=== PATIENT | male | born 1950 | race Caucasian/White ===

== ENCOUNTER 2017-09-16 10:29 | Outpatient (CLI) | payer MEDICARE, OTHER ==
[2017-09-16 17:58] LABS: BASOPHILS # (AUTO) 0.1 10^3/uL (0.0-0.1); BASOPHILS % (AUTO) 0.8 %; EOSINOPHILS # (AUTO) 0.1 10^3/uL (0.0-0.7); EOSINOPHILS % (AUTO) 1.6 %; HGB - HEMOGLOBIN 15.4 g/dL (14.0-18.0); MEAN CORPUSCULAR HEMOGLOBIN 32.4 pg (27.0-31.0); MEAN CORPUSCULAR HGB CONC 33.6 g/dL (32.0-36.0); MEAN CORPUSCULAR VOLUME 96.3 fL (80.0-94.0); MEAN PLATELET VOLUME 8.6 fL (7.4-11.4); MONOCYTES # (AUTO) 0.9 10^3/uL (0.0-1.0); MONOCYTES % (AUTO) 13.5 %; NEUTROPHILS # (AUTO) 2.8 10^3/uL (1.5-6.6); NEUTROPHILS % (AUTO) 41.1 %; PLT - PLATELET COUNT 309 10^3/uL (130-450); RED BLOOD COUNT 4.75 10^6/uL (4.70-6.10); RED CELL DISTRIBUTION WIDTH 12.5 % (12.0-15.0); WHITE BLOOD COUNT 6.9 x10^3/uL (4.8-10.8)
[2017-09-16 18:08] LABS: ALBUMIN 4.4 g/dL (3.2-5.5); ALBUMIN/GLOBULIN RATIO 1.3 (1.0-2.2); ALKALINE PHOSPHATASE 55 IU/L (42-121); ALT ALANINE AMINOTRANSFERASE 28 IU/L (10-60); AST ASPARTATE AMINOTRANSFERASE 21 IU/L (10-42); BUN - BLOOD UREA NITROGEN 16 mg/dL (6-20); CALCIUM 9.1 mg/dL (8.5-10.3); CARBON DIOXIDE - CO2 22 mmol/L (21-32); CHLORIDE 99 mmol/L (101-111); CHOL/HDL RATIO 4.1 (<5.0); CHOLESTEROL 244 mg/dL; CREATININE 0.9 mg/dL (0.6-1.2); GFR - MDRD 84 (>89); GLUCOSE 106 mg/dL (70-100); HDL CHOLESTEROL 59 mg/dL; LDL CHOLESTEROL,CALCULATED 145 mg/dL; LDL/HDL RATIO 2.5 (<3.6); SODIUM 132 mmol/L (135-145); TOTAL PROTEIN 7.8 g/dL (6.7-8.2); VLDL CHOLESTEROL 40 mg/dL
[2017-09-17 13:46] LABS: HEPATITIS A AB TOTAL(IMMUNITY) NON-REACTIVE (NON-REACTIVE); HEPATITIS B CORE AB TOTAL NON-REACTIVE (NON-REACTIVE)
[2017-09-17 15:27] LABS: HEPATITIS B SURFACE ANTIGEN NON-REACTIVE (NON-REACTIVE); HEPATITIS C ANTIBODY NON-REACTIVE (NON-REACTIVE)
== END 2017-09-16 10:30 | disposition home or self-care (01) ==
LOC: LAB.F 10:29
PROVIDERS: ATTEND Specialist
DX: I10 Essential (primary) hypertension (principal); Z12.5 Encounter for screening for malignant neoplasm of prostate; Z13.9 Encounter for screening, unspecified; D64.9 Anemia, unspecified; K76.89 Other specified diseases of liver
CPT/HCPCS: 36415; 80053; 80061; 85025; 86704; 86708; 86803; 87340; G0103; 84153

== ENCOUNTER 2019-09-21 15:00 | Outpatient (CLI) | payer MEDICARE, OTHER | END 2019-09-21 15:01 | disposition home or self-care (01) | LOC: LAB.S 15:00 | PROVIDERS: ATTEND Urology | DX: R97.20 Elevated prostate specific antigen [PSA] (principal) | CPT/HCPCS: 36415; 84153 ==

== ENCOUNTER 2020-07-30 16:54 | Outpatient (CLI) | payer MEDICARE, OTHER | END 2020-07-30 16:55 | disposition home or self-care (01) | LOC: COV 16:54 | PROVIDERS: ATTEND Family Medicine | DX: Z20.828 Contact with and (suspected) exposure to other viral communicable diseases (principal) ==

== ENCOUNTER 2020-10-09 15:43 | Outpatient (CLI) | payer MEDICARE, OTHER | END 2020-10-09 15:44 | disposition home or self-care (01) | LOC: LAB.S 15:43 | PROVIDERS: ATTEND Urology | DX: R97.20 Elevated prostate specific antigen [PSA] (principal) | CPT/HCPCS: 36415; 84153 ==

== ENCOUNTER 2021-05-14 20:59 | Emergency (ER) | payer MEDICARE, OTHER ==
[2021-05-14] MEDS ORDERED: IBUPROFEN 800 MG TABLET PO STA (21:33)
[2021-05-14] MEDS ORDERED: ACETAMINOPHEN 325 MG TABLET PO STA (21:33)
--- NOTE | 2021-05-14 21:38 | ED Physician Documentation ---
History of Present Illness - Stated complaint Stated Complaint: FEVER, FATIGUE, BODY ACHE - Chief complaint Chief Complaint: Fever - History obtained from History obtained from: Patient - Additonal information Additional information: Patient comes emergency department chief complaint of fever, fatigue, and a sense of chest congestion. He states that he had Covid about 5 weeks ago and this feels somewhat similar. States he had the Pfizer vaccine second dose back in December, and his had [employer], but became sick with Covid first. Patient became symptomatic 5 days after his . He states that he is a an avid swimmer and was able to swim a mile and a half yesterday. However, today he woke up feeling as though he was "hung over". He denies cough, but states he just has a sense of congestion in his upper airways that feels like he will eventually develop a cough. He denies any vomiting but has been mildly nauseated. He has also had some aches and chills. He denies any other complaints at this time. No other focal symptoms, such as dysuria or sore throat. He feels slightly dyspneic. Review of Systems Ten Systems: 10 systems reviewed and negative Constitutional: reports: Fever, Chills, Myalgias, Fatigue Eyes: reports: Reviewed and negative Ears: reports: Reviewed and negative Nose: reports: Reviewed and negative Throat: reports: Reviewed and negative Cardiac: reports: Reviewed and negative Respiratory: reports: Dyspnea. denies: Cough GI: reports: Reviewed and negative : reports: Reviewed and negative Skin: reports: Reviewed and negative Musculoskeletal: reports: Reviewed and negative Neurologic: reports: Reviewed and negative Psychiatric: reports: Reviewed and negative Endocrine: reports: Reviewed and negative Immunocompromised: reports: Reviewed and negative PD PAST MEDICAL HISTORY - Allergies Allergies/Adverse Reactions: Allergies Allergy/AdvReac Type Severity Reaction Status Date / Time No Known Drug Allergies Allergy Verified 05/14/21 22:42 PD ED PE NORMAL - Vitals Vital signs reviewed: Yes - General General: Alert and oriented X 3, No acute distress, Well developed/nourished (Patient is very well-appearing.) - HEENT HEENT: Atraumatic, PERRL, EOMI, Moist mucous membranes - Neck Neck: Supple, no meningeal sign - Cardiac Cardiac: RRR, No murmur - Respiratory Respiratory: No respiratory distress, Clear bilaterally - Abdomen Abdomen: Soft, Non tender, Non distended - Derm Derm: Normal color, Warm and dry, No rash - Extremities Extremities: No deformity, No edema - Neuro Neuro: Alert and oriented X 3 - Psych Psych: Normal mood, Normal affect Results - Vitals Vitals: Vital Signs - 24 hr 05/14/21 05/14/21 21:05 23:38 Temperature 38.5 C H 37.3 C Heart Rate 108 H 98 Respiratory 16 24 Rate Blood Pressure 167/90 H 120/106 H O2 Saturation 97 94 Oxygen O2 Source Room air - Labs Labs: Laboratory Tests 05/14/21 05/14/21 21:42 22:16 WBC 10.8 RBC 4.15 L Hgb 14.0 Hct 39.3 L MCV 94.7 H MCH 33.7 H MCHC 35.6 RDW 11.7 L Plt Count 254 MPV 8.9 Neut # (Auto) 7.8 H Lymph # (Auto) 2.0 [place] # (Auto) 0.9 Eos # (Auto) 0.0 Baso # (Auto) 0.1 Absolute Nucleated RBC 0.00 Nucleated RBC % 0.0 Nasal Adenovirus (PCR) NOT DETECTED Nasal B. parapertussis DNA (PCR) NOT DETECTED Nasal Coronavir 229E PCR NOT DETECTED Nasal Coronavir HKU1 PCR NOT DETECTED Nasal Coronavir NL63 PCR NOT DETECTED Nasal Coronavir OC43 PCR NOT DETECTED Nasal Enterovir/Rhinovir PCR NOT DETECTED Nasal Influenza B PCR NOT DETECTED Nasal Influenza A PCR NOT DETECTED Nasal Parainfluen 1 PCR NOT DETECTED Nasal Parainfluen 2 PCR NOT DETECTED Nasal Parainfluen 3 PCR NOT DETECTED Nasal Parainfluen 4 PCR NOT DETECTED Nasal RSV (PCR) NOT DETECTED Nasal B.pertussis DNA PCR NOT DETECTED Nasal C.pneumoniae (PCR) NOT DETECTED [place] Human Metapneumo PCR NOT DETECTED Nasal M.pneumoniae (PCR) NOT DETECTED Nasal SARS-CoV-2 (PCR) NOT DETECTED - Rads (name of study) Chest x-ray Radiology: Final report received, EMP read indepedently, See rad report (neg) PD MEDICAL DECISION MAKING - ED course Complexity details: reviewed results, re-evaluated patient, considered differential, d/w patient ED course: The patient was extremely well-appearing in the emergency department, but given his age and fever, I felt that he should be worked up for potential causes of his symptoms. Respiratory PCR panel was sent, and patient was also evaluated with chest x-ray. CBC was also performed. The patient was given ibuprofen and Tylenol for his fever.The patient's work-up was negative. He was feeling better and felt he was stable for discharge home I did not find Evidence of a focus of infection and suspected viral illness. However, we discussed that the patient just feeling worse, he should return to the emergency department for further evaluation. Departure - Departure Disposition: Home, Self Care Clinical Impression: Fever Qualifiers: Fever type: unspecified Qualified Code(s): R50.9 - Fever, unspecified Condition: Stable Instructions: ED Fever Unconf Cause Comments: Your chest x-ray shows no pneumonia and is normal. Your white blood cell count is also normal, which is reassuring. Your viral panel did come back just now and is negative for everything including influenza and coronavirus. At this point in time, it is most likely that you have picked up one of the other viru ses in the environment, of which there are many which cause similar symptoms. Most likely, you will get feeling better over the next several days. However, if you feel that your significantly worsening, you should return to the emergency department for further evaluation. In the meantime, be sure to drink plenty of fluids and take ibuprofen and/or Tylenol every 4-6 hours as needed for fever. Specifically, you may take Tylenol 650 mg every 4 hours and ibuprofen 600 mg every 6 hours as needed. You may exercise as tolerated when you are feeling well enough. Discharge Date/Time: 05/14/21 23:35
[2021-05-14 21:44] LABS: BASOPHILS # (AUTO) 0.1 10^3/uL (0.0-0.1); BASOPHILS % (AUTO) 0.5 %; EOSINOPHILS % (AUTO) 0.4 %; HCT - HEMATOCRIT 39.3 % (42.0-52.0); LYMPHOCYTES % (AUTO) 18.2 %; MEAN CORPUSCULAR HEMOGLOBIN 33.7 pg (27.0-31.0); MEAN CORPUSCULAR HGB CONC 35.6 g/dL (32.0-36.0); MEAN CORPUSCULAR VOLUME 94.7 fL (80.0-94.0); MEAN PLATELET VOLUME 8.9 fL (7.4-11.4); MONOCYTES # (AUTO) 0.9 10^3/uL (0.0-1.0); MONOCYTES % (AUTO) 8.5 %; NEUTROPHILS # (AUTO) 7.8 10^3/uL (1.5-6.6); NEUTROPHILS % (AUTO) 72.1 %; PLT - PLATELET COUNT 254 10^3/uL (130-450); RED BLOOD COUNT 4.15 10^6/uL (4.70-6.10); RED CELL DISTRIBUTION WIDTH 11.7 % (12.0-15.0); WHITE BLOOD COUNT 10.8 x10^3/uL (4.8-10.8)
[2021-05-14 23:11] LABS: B. PARAPERTUSSIS- RESP PCR PAN NOT DETECTED; B. PERTUSSIS- RESP PCR PANEL NOT DETECTED; C. PNEUMONIAE- RESP PCR PANEL NOT DETECTED; CORONAVIRUS 229E-RESP PCR NOT DETECTED; CORONAVIRUS HKU1-RESP PCR NOT DETECTED; CORONAVIRUS NL63-RESP PCR NOT DETECTED; CORONAVIRUS OC43-RESP PCR NOT DETECTED; HUMAN METAPNEUMOVIRUS NOT DETECTED; INFLUENZA A- RESP PCR PANEL NOT DETECTED; INFLUENZA B - RESP PCR PANEL NOT DETECTED; M. PNEUMONIAE- RESP PCR PANEL NOT DETECTED; PARAINFLUENZA VIRUS 1 NOT DETECTED; PARAINFLUENZA VIRUS 2 NOT DETECTED; PARAINFLUENZA VIRUS 3 NOT DETECTED; PARAINFLUENZA VIRUS 4 NOT DETECTED; RHINOVIRUS/ENTEROVIRUS NOT DETECTED; RSV- RESP PCR PANEL NOT DETECTED; SARS-CoV-2 -RESP PCR PANEL NOT DETECTED
[2021-05-14 23:41] VITALS: BP 120/106
--- NOTE | 2021-05-15 08:07 | XRAY Report ---
PROCEDURE: Chest 1 View X-Ray INDICATIONS: chest pain TECHNIQUE: One view of the chest was acquired. COMPARISON: None FINDINGS: Surgical changes and devices: None. Lungs and pleura: No pleural effusions or pneumothorax. Lungs are clear. Mediastinum: Mediastinal contours appear normal. Heart size is normal. Bones and chest wall: No suspicious bony lesions. Overlying soft tissues appear unremarkable. IMPRESSION: No effusions or consolidations. It is noted the inferior most aspect of the right costophrenic angle is not included within the [id number]. Reviewed by: Suzan Gonzales MD on 05/15/2021 8:05 AM PDT Approved by: Suzan Gonzales MD on 05/15/2021 8:05 AM PDT Station ID: [id number]
== END 2021-05-14 23:35 | disposition home or self-care (01) ==
LOC: ED 20:59
DX: R50.9 Fever, unspecified (principal); Z86.16 Personal history of COVID-19
CPT/HCPCS: 36415; 71045; 85025; 87631; 99284; A9270; 0202U

== ENCOUNTER 2021-10-24 08:00 | Outpatient (CLI) | payer MEDICARE, OTHER ==
--- NOTE | 2021-10-24 11:51 | XRAY Report ---
PROCEDURE: Chest 2 View X-Ray INDICATIONS: RIGHT LOWER ZONE PNEUMONIA TECHNIQUE: 2 view(s) of the chest. COMPARISON: 05/14/2021 FINDINGS: Surgical changes and devices: None. Lungs and pleura: An incomplete inspiratory result is noted, with low lung volumes and crowding of t he vascular markings. No focal infiltrates are seen. No large pneumothorax or large pleural effusion can be seen. Mediastinum: Mediastinal contours are normal. Heart size is normal. Bones and chest wall: No suspicious bony abnormalities. Soft tissues appear unremarkable. IMPRESSION: No focal infiltrates are seen. If there is strong clinical concern for a developing or new pulmonary process, please consider a shor t-term follow-up 2 view chest series, performed in deep inspiration. Reviewed by: Yamil Man MD on 10/24/2021 10:50 AM [facility] Approved by: Yamil Man MD on 10/24/2021 10:50 AM [facility] Station ID: [id number]
== END 2021-10-24 23:59 | disposition home or self-care (01) ==
LOC: DI.S 08:00
PROVIDERS: ATTEND Emergency Medicine
DX: J18.1 Lobar pneumonia, unspecified organism (principal)

== ENCOUNTER 2021-12-17 16:07 | Outpatient (CLI) | payer MEDICARE, OTHER | END 2021-12-17 16:08 | disposition home or self-care (01) | LOC: LAB.S 16:07 | PROVIDERS: ATTEND Urology | DX: Z12.5 Encounter for screening for malignant neoplasm of prostate (principal) | CPT/HCPCS: 36415; G0103; 84153 ==

== ENCOUNTER 2022-11-24 13:29 | Outpatient (CLI) | payer MEDICARE, OTHER ==
[2022-11-24 20:32] LABS: ALBUMIN/GLOBULIN RATIO 1.2 (1.0-2.2); BILIRUBIN,TOTAL 0.9 mg/dL (0.2-1.0); CALCIUM 8.9 mg/dL (8.5-10.3); CREATININE 0.9 mg/dL (0.6-1.2); TOTAL PROTEIN 7.3 g/dL (6.7-8.2)
== END 2022-11-24 13:30 | disposition home or self-care (01) ==
LOC: LAB.S 13:29
PROVIDERS: ATTEND Internal Medicine Gastroenterology
DX: R10.10 Upper abdominal pain, unspecified (principal)
CPT/HCPCS: 36415; 80053

== ENCOUNTER 2023-05-13 14:20 | Outpatient (CLI) | payer MEDICARE, OTHER | END 2023-05-13 14:21 | disposition home or self-care (01) | LOC: LAB 14:20 | PROVIDERS: ATTEND Registered Nurse | DX: R61 Generalized hyperhidrosis (principal) | CPT/HCPCS: 36415; 86141; 93005 ==

== ENCOUNTER 2023-08-03 09:01 | Outpatient (CLI) | payer MEDICARE, OTHER | END 2023-08-03 09:02 | disposition home or self-care (01) | LOC: DI 09:01 | PROVIDERS: ATTEND Registered Nurse | DX: R61 Generalized hyperhidrosis (principal); I51.7 Cardiomegaly; I35.0 Nonrheumatic aortic (valve) stenosis; I35.1 Nonrheumatic aortic (valve) insufficiency; I77.810 Thoracic aortic ectasia | CPT/HCPCS: 93306 ==

== ENCOUNTER 2023-09-15 15:07 | Outpatient (CLI) | payer MEDICARE, OTHER ==
[2023-09-15 15:42] LABS: CALCIUM 9.6 mg/dL (8.5-10.3); CREATININE 1.2 mg/dL (0.6-1.3); POTASSIUM 4.3 mmol/L (3.5-4.5)
== END 2023-09-15 15:08 | disposition home or self-care (01) ==
LOC: LAB 15:07
PROVIDERS: ATTEND Internal Medicine Cardiovascular Disease
DX: I10 Essential (primary) hypertension (principal)
CPT/HCPCS: 36415; 80048

== ENCOUNTER 2024-01-10 13:03 | Outpatient (CLI) | payer MEDICARE, OTHER | END 2024-01-10 13:04 | disposition home or self-care (01) | LOC: LAB 13:03 | PROVIDERS: ATTEND Urology | DX: Z12.5 Encounter for screening for malignant neoplasm of prostate (principal) | CPT/HCPCS: 36415; G0103; 84153 ==

== ENCOUNTER 2024-01-26 10:37 | Outpatient (CLI) | payer MEDICARE, OTHER ==
[2024-01-26 11:04] LABS: CALCIUM 9.7 mg/dL (8.5-10.3); POTASSIUM 3.7 mmol/L (3.5-4.5)
== END 2024-01-26 10:38 | disposition home or self-care (01) ==
LOC: LAB 10:37
PROVIDERS: ATTEND Internal Medicine Cardiovascular Disease
DX: I10 Essential (primary) hypertension (principal)
CPT/HCPCS: 36415; 80048

== ENCOUNTER 2024-03-23 14:15 | Outpatient (CLI) | payer MEDICARE, OTHER ==
[2024-03-23 15:25] LABS: CREATININE 0.9 mg/dL (0.6-1.3); POTASSIUM 3.8 mmol/L (3.5-4.5)
== END 2024-03-23 14:16 | disposition home or self-care (01) ==
LOC: LAB 14:15
PROVIDERS: ATTEND Internal Medicine Cardiovascular Disease
DX: I10 Essential (primary) hypertension (principal)
CPT/HCPCS: 36415; 80048

== ENCOUNTER 2024-05-22 09:34 | Emergency (ER) | payer MEDICARE, OTHER ==
[2024-05-22 09:49] VITALS: BP 139/90
--- NOTE | 2024-05-22 10:27 | XRAY Report ---
PROCEDURE: Chest 1V INDICATIONS: chest pain TECHNIQUE: One view of the chest was acquired. COMPARISON: 10/24/2021. FINDINGS: Surgical changes and devices: None. Lungs and pleura: No pleural effusions or pneumothorax. Lungs are clear. Mediastinum: Mediastinal contours appear normal. Heart size is normal. Bones and chest wall: No suspicious bony lesions. Overlying soft tissues appear unremarkable. IMPRESSION: No acute cardiopulmonary process. Reviewed by: Gee De La Fuente MD on 05/22/2024 10:25 AM PDT Approved by: Gee De La Fuente MD on 05/22/2024 10:25 AM PDT Station ID: [id number]
[2024-05-22 10:42] VITALS: O2SAT 95
--- NOTE | 2024-05-22 10:54 | ED Physician Documentation ---
PD HPI URI - Stated complaint Stated Complaint: C+ - Chief complaint Chief Complaint: General - History obtained from History obtained from: Patient - History of Present Illness Timing - onset: How many days ago (4) Timing duration: Days (4) Timing details: Gradual onset, Still present Associated symptoms: Nasal congestion, Sore throat, Dry cough Contributing factors: Other (+ COVID) Improves by: Rest, Medication Worsened by: Activity Similar symptoms before: Diagnosis (COVID) Recently seen: Not recently seen - Additional information Additional information: Ben Rai is a 74-year-old male with a history of aortic regurgitation (under surveillance) who presents with a 4-day history of upper respiratory symptoms including a sore throat and dry cough. He has tested positive for COVID. He has had COVID previously and he has been immunized multiple times. He did not have complications with his prior COVID infection. He is not coughing up any phlegm. He is not febrile. He does not have any history of diabetes, obesity or heart disease. Review of Systems Constitutional: denies: Fever, Chills Ears: denies: Ear pain Nose: reports: Congestion. denies: Rhinorrhea / runny nose Throat: reports: Sore throat Cardiac: denies: Chest pain / pressure, Palpitations Respiratory: reports: Cough. denies: Dyspnea GI: denies: Vomiting, Diarrhea PD PAST MEDICAL HISTORY - Past Medical History Past Medical History: Yes Cardiovascular: Hypertension Respiratory: None Neuro: None Endocrine/Autoimmune: None GI: Colon polyps : None HEENT: None Psych: None Musculoskeletal: None Derm: None - Past Surgical History Past Surgical History: Yes Ortho: Knee replacement - Allergies Allergies/Adverse Reactions: Allergies Allergy/AdvReac Type Severity Reaction Status Date / Time No Known Drug Allergies Allergy Verified 05/22/24 09:46 - Social History Does the pt smoke?: No Smoking Status: Never smoker Does the pt drink ETOH?: No Does the pt have substance abuse?: No - Immunizations Immunizations are current?: Yes Immunizations: TDAP >10years/unknown - POLST Patient has POLST: No PD ED PE NORMAL - Vitals Vital signs reviewed: Yes (hypertertensive ) - General General: Alert and oriented X 3, No acute distress, Well developed/nourished - HEENT HEENT: Atraumatic, PERRL, EOMI - Neck Neck: Supple, no meningeal sign, No bony TTP - Cardiac Cardiac: RRR, Other (2/6 holosystolic murmer at LSB) - Respiratory Respiratory: No respiratory distress - Abdomen Abdomen: Soft, Non tender - Derm Derm: Normal color, Warm and dry, No rash - Extremities Extremities: No deformity, No edema - Neuro Neuro: Alert and oriented X 3, 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, No motor deficit, No sensory deficit, Normal speech Eye Opening: Spontaneous Motor: Obeys Commands Verbal: Oriented GCS Score: 15 - Psych Psych: Normal mood, Normal affect Results - Vitals Vitals: Vital Signs - 24 hr 05/22/24 05/22/24 09:46 10:33 Temperature 37.1 C Heart Rate 73 59 L Respiratory 18 16 Rate Blood Pressure 139/90 H 139/90 H O2 Saturation 99 95 Oxygen O2 Source Room air - Rads (name of study) chest Relevant Findings:: Prelim report reviewed (Impression: no acute cardiopulmonary process.), EMP independent interpretation of test PD Medical Decision Making - ED course Complexity details: considered differential, d/w patient ED course: Ben Rai is a 74-year-old male who presents to the emergency department with a positive COVID test and he is not feeling ill. He had symptoms start about 4 days ago his sore throat is improving and this is the major symptom that he has had. A chest x-ray is obtained without evidence of infiltrate. The patient was concerned about taking paxlovid and this appears unnecessary. Departure - Departure Disposition: 01 Home, Self Care Clinical Impression: COVID Condition: Stable Instructions: COVID-19 [facility] Department Statement Follow-Up: Bridget Mcgrath ARNP [Primary Care Provider] - Comments: Ben, today it looks like you have COVID and there is not evidence of pneumonia on your chest x-ray. Our expectations are improvement in your symptoms over the next 3 to 5 days and complete resolution. Stay hydrated and take Tylenol if you develop a fever. Follow-up here if you develop hypoxia or worsening of symptoms.
== END 2024-05-22 11:20 | disposition home or self-care (01) ==
LOC: ED 09:34
DX: U07.1 COVID-19 (principal)
CPT/HCPCS: 99283